=== PATIENT | female | born 1985 | race Two or more races ===

== ENCOUNTER → 2020-11-19 | Outpatient (CLI) | payer OTHER ==
[~2020-11-19] MED LIST: DESPEC-DM TABL1 EACH PO; ZITHROMAX200 MG PO
== END | disposition home or self-care (01) ==
LOC: PPH VACUNA
DX: Z23 Encounter for immunization (principal)

== ENCOUNTER 2023-07-09 05:55 | Day surgery (SDC) | payer OTHER ==
[2023-07-05 12:03] LABS: HEMATOCRIT 38.4 % (36.0-45.00); HEMOGLOBIN 13.1 g/dL (12.0-15.00); MEAN CELL VOLUME 92.1 fL (80.00-100.00); MEAN CORPUSCULAR HEMOGLOBIN 31.4 pg (27.00-32.0); MEAN CORPUSCULAR HGB CONC 34.1 g/dl (32.0-36.0); PLATELET COUNT 291 K/uL (150-450); RED BLOOD COUNT 4.16 M/uL (4.00-6.00); RED CELL DISTRIBUTION WIDTH 13.5 % (11.5-14.5)
[2023-07-05 12:40] LABS: URINE APPEARANCE Clear; URINE BILIRRUBIN Negative (NEGATIVE); URINE BLOOD Negative; URINE COLOR Yellow; URINE GLUCOSE Negative (NEGATIVE); URINE LEUKOCYTE Trace; URINE NITRATE Negative; URINE PROTEIN Negative (NEGATIVE); URINE UROBILINOGEN 0.2 E.U./dl
[2023-07-05 12:44] LABS: URINE BACTERIA 854.2 uL (0.0-1933); URINE EPITHELIAL CELLS 19.4 uL (0.0-38.8); URINE RBC 15.6 uL (0.0-20.8); URINE WBC 24.4 uL (0.0-23.2)
[2023-07-05 12:57] LABS: BILIRUBIN TOTAL 0.85 mg/dL (0.3-1.2); CALCIUM 9.1 mg/dL (8.5-10.1); CREATININE SERUM 0.7 mg/dL (0.55-1.02); GFR 93.16; GLOBULINA 3.5 G/DL (2.4-3.5); INR 0.99; PARTIAL THROMBOPLASTIN TIME 27.6 SECONDS (22.0-34.0); POTASSIUM 4.01 mEq/L (3.5-5.1); PROTHROMBIN TIME 10.4 SECONDS (9.0-11.5); TOTAL PROTEIN 7.5 gm/dL (6.4-8.2)
== END 2023-07-09 10:35 | disposition home or self-care (01) ==
LOC: CIR.AMB 05:55
PROVIDERS: ATTEND Obstetrics & Gynecology
DX: N84.0 Polyp of corpus uteri (principal); N93.8 Other specified abnormal uterine and vaginal bleeding; Z20.822 Contact with and (suspected) exposure to COVID-19; Z88.6 Allergy status to analgesic agent; Z88.2 Allergy status to sulfonamides